=== PATIENT | female | born 1985 | race Caucasian/White ===

== ENCOUNTER 2021-12-27 16:42 | Emergency (ER) | payer OTHER, MEDICAID ==
[2021-12-27 17:14] VITALS: PULSE 77
[2021-12-27] MEDS ORDERED: Morphine 2 MG/ML SYRINGE IVPUSH ONE (17:28)
[2021-12-27] MEDS ORDERED: Lactated Ringers 1,000 ML IV SCH (17:30)
[2021-12-27] MEDS ORDERED: Iopamidol 612 MG/ML 100 ML Bottle IVPUSH ONE (18:00)
[2021-12-27] MEDS ORDERED: Sodium Chloride 0.9% 10 ML Syringe FLUSH PRN (18:00)
[2021-12-27] MEDS ORDERED: Acetaminophen/HYDROcodone 325-5 MG Tab PO ONE (18:39)
[2021-12-27 18:46] VITALS: BP 122/83
== END 2021-12-27 19:40 | disposition home or self-care (01) ==
LOC: JD.ED 16:42
DX: S22.42XA Multiple fractures of ribs, left side, initial encounter for closed fracture (principal); Z79.899 Other long term (current) drug therapy; V84.5XXA Driver of special agricultural vehicle injured in nontraffic accident, initial encounter; Y92.410 Unspecified street and highway as the place of occurrence of the external cause
CPT/HCPCS: 36415; 71046; 74177; 80053; 81001; 85025; 96374; 99284; A9270; J2270; J3490; J7120; Q9967